=== PATIENT | male | born 1955 | race Asian ===

== ENCOUNTER 2017-07-05 17:15 | Observation (INO) | payer OTHER ==
[~2017-07-05] VITALS: Ht 167.6 cm; Wt 70.3 kg
[~2017-07-05 17:15] MED LIST: AMLO-145 PO; ATOR80TA75 PO; INSULIN GLARGINE; LOSA50TA6 PO; METF500T4 PO; OMEP20CA16 PO; ferrous sulfate
[2017-07-05] MEDS ORDERED: SOD CHLORIDE 0.9% 500 ML IV STA (18:56)
[2017-07-05 19:41] LABS: ABNORMAL IP MESSAGE 1; HEMATOCRIT 19.2 % (42.0-52.0); MEAN CORPUSCULAR HEMOGLOBIN 36.4 pg (29.0-33.0); MEAN CORPUSCULAR HGB CONC 32.8 g/dl (32.0-37.0); MEAN PLATELET VOLUME 10.1 fl (7.4-10.4); NUCLEATED RED BLOOD CELLS% 1.7 /100WBC (0.0-0.0); PLATELET COUNT 61 10^3/UL (140-415); POSITIVE DIFF @See below; RED BLOOD COUNT 1.73 10^6/ul (4.70-6.10)
[2017-07-05 19:49] LABS: HEMOGLOBIN 6.3 g/dl (14.0-18.0)
[2017-07-05 19:57] LABS: INR 0.96; PROTIME 12.8 Sec (12.2-14.2)
[2017-07-05 19:58] LABS: PARTIAL THROMBOPLASTIN TIME 47.5 Sec (25.0-35.0)
[2017-07-05 20:00] LABS: ALBUMIN 3.4 g/dl (3.3-4.9); ALBUMIN/GLOBULIN RATIO 1.17; BILIRUBIN,INDIRECT 0.1 mg/dl (0-1.1); BILIRUBIN,TOTAL 0.1 mg/dl (0.2-1.3); CALCIUM 8.8 mg/dl (8.4-10.2); CREATININE 1.47 mg/dl (0.61-1.24); POTASSIUM 4.6 mmol/L (3.5-5.1); TOTAL PROTEIN 6.3 g/dl (6.1-8.1)
[2017-07-05 20:10] LABS: TROPONIN-I 0.015 ng/ml (0.00-0.12)
[2017-07-05] MEDS ORDERED: ONDANSETRON 4 MG INJ IV PRN ×2 (20:30→22:00)
[2017-07-05] MEDS ORDERED: ACETAMINOPHEN 325 MG TAB PO PRN ×2 (20:30→22:00)
[2017-07-05] MEDS ORDERED: ATOR40TA68 PO (20:32)
[2017-07-05] MEDS ORDERED: TRAZ50TA18 PO (20:33)
[2017-07-05] MEDS ORDERED: FER325 PO (20:33)
[2017-07-05 20:34] LABS: ANISOCYTOSIS 1+ (0-0); EOSINOPHILS % (M) 2 % (0-7); ERYTHROBLAST% (NRBC) (M) 2 % (0-0); MONOCYTES % (M) 5 % (0-11); PLATELET ESTIMATE DECREASED; POLYCHROMASIA 1+ (0-0)
[2017-07-05] MEDS ORDERED: TAMS0.4C2 PO (20:34)
[2017-07-05] MEDS ORDERED: OMEP20CA16 PO (20:34)
[2017-07-05] MEDS ORDERED: GABA300C16 PO (20:37)
[2017-07-05] MEDS ORDERED: MEG40/1 PO (20:37)
[2017-07-05] MEDS ORDERED: FURO20TA3 PO (20:38)
[2017-07-05] MEDS ORDERED: LEVO175T6 PO (20:39)
[2017-07-05] MEDS ORDERED: LABE100T3 PO (20:39)
[2017-07-05] MEDS ORDERED: DOCU-159 PO (20:40)
[2017-07-05] MEDS ORDERED: HYDR2TAB36 PO (20:40)
[2017-07-05 20:43] VITALS: PULSE 88; TEMP 98.1
[2017-07-05] MEDS ORDERED: LANT3I SC (20:43)
[2017-07-05] MEDS ORDERED: INSU100C SQ (20:44)
[2017-07-05] MEDS ORDERED: CLOT15CR6 TOP (20:46)
[2017-07-05 21:30] VITALS: BP 163/80; RESP 19
--- NOTE | 2017-07-05 21:36 | ERA ---
ER Documentation Chief Complaint Date/Time DATE: 07/05/17 TIME: 21:31 Chief Complaint sent by pcp for blood transfusion HPI This 62-year-old male presents for increasing generalized weakness and tiredness. He was seen by his primary care doctor today who believes he would need a blood transfusion. He states that he gets low hemoglobin secondary to chemotherapy. He denies any GI bleeding. Currently does not have any pain but states that he is hungry ROS All systems reviewed and are negative except as per history of present illness. Medications Home Meds Reported Medications Clotrimazole-Betamethasone Diprop (Clotrimazole-Betamethasone Diprop) 15 Gm Cream.gm., 1 APPLIC TOP BID, TUB 07/05/17 Insulin Lispro (Humalog) 100 Unit/1 Ml Cartridge, 3 UNIT SQ BEFORE MEALS 07/05/17 Insulin Glargine* (Lantus*) 100 Unit/Ml Soln, 25 UNIT SC QHS, #1 VIAL OR 30 UNITS. DEPENDS WHAT HE EATING 07/05/17 Docusate Sodium* (Docusate Sodium*) 100 Mg Capsule, 100 MG PO BID, #60 CAP 07/05/17 Hydromorphone Hcl* (Dilaudid*) 2 Mg Tablet, 2 MG PO Q4H Y for PAIN, TAB 07/05/17 Labetalol Hcl* (Labetalol Hcl*) 100 Mg Tablet, 100 MG PO BID, TAB 07/05/17 Levothyroxine Sodium* (Levothyroxine Sodium*) 175 Mcg Tablet, 175 MCG PO BEFORE BREAKFAST, #30 TAB 07/05/17 Furosemide* (Furosemide*) 20 Mg Tablet, 20 MG PO DAILY, #60 TAB 07/05/17 Megestrol Acetate* (Megestrol Acetate*) 400 Mg/10 Ml Susp, 400 MG PO BID, ML 07/05/17 Gabapentin* (Gabapentin*) 300 Mg Capsule, 300 MG PO DAILY, #60 CAP 07/05/17 Tamsulosin Hcl* (Tamsulosin Hcl*) 0.4 Mg Cap.er.24h, 0.4 MG PO DAILY, CAP 07/05/17 Omeprazole* (Omeprazole*) 20 Mg Capsule.dr, 20 MG PO DAILY, #30 CAP 07/05/17 Trazodone Hcl* (Desyrel*) 50 Mg Tablet, 50 MG PO QHS, #30 TAB 07/05/17 Ferrous Sulfate* (Ferrous Sulfate*) 325 Mg Tabec, 325 MG PO DAILY, TAB 07/05/17 Atorvastatin* (Atorvastatin*) 40 Mg Tablet, 40 MG PO QHS, #30 TAB 07/05/17 Metformin* (Glucophage*) 500 Mg Tab, 500 MG PO BID, TAB 11/01/14 Discontinued Reported Medications Omeprazole* (Omeprazole*) 20 Mg Capsule.dr, 20 MG PO DAILY, CAP 11/01/14 [ferrous sulfate] No Conflict Check 11/01/14 Losartan Potassium* (Losartan Potassium*) 50 Mg Tablet, 50 MG PO DAILY, TAB 11/01/14 Amlodipine Besylate* (Amlodipine Besylate*) 5 Mg Tablet, 5 MG PO DAILY, TAB 11/01/14 [lantus 50 u hs] No Conflict Check 11/01/14 Atorvastatin* (Atorvastatin*) 80 Mg Tablet, 80 MG PO HS, TAB 11/01/14 Allergies Allergies: Coded Allergies: No Known Allergy (Unverified , 07/05/17) PMhx/Soc History of Surgery: No Anesthesia Reaction: No Hx Neurological Disorder: No Hx Respiratory Disorders: No Hx Cardiac Disorders: No Hx Psychiatric Problems: No Hx Alcohol Use: No Hx Substance Use: No Hx Tobacco Use: No Smoking Status: Former smoker Physical Exam Vitals Vital Signs Date Time Temp Pulse Resp B/P Pulse Ox O2 Delivery O2 Flow Rate FiO2 07/05/17 19:29 98.1 89 17 185/85 100 Room Air 07/05/17 17:20 98.2 92 20 129/60 99 Physical Exam Const: [] Mild distress Head: Atraumatic Eyes: Pale conjunctiva, EOMI, PRL ENT: Normal External Ears, Nose and Mouth. Neck: Full range of motion..~ No meningismus. Resp: Clear to auscultation bilaterally Cardio: Regular rate and rhythm, no murmurs Abd: Soft, non tender, non distended. Normal bowel sounds Skin: No petechiae or rashes Ext: No cyanosis, or edema Neur: Awake and alert and oriented 3, no focal deficit Psych: Normal Mood and Affect Result Diagram: 07/05/17192407/05/171924 Results 24 hrs Laboratory Tests Test 07/05/17 19:25 White Blood Count 16.210^3/ul Red Blood Count 1.7310^6/ul Hemoglobin 6.3g/dl Hematocrit 19.2% Mean Corpuscular Volume 111.0fl Mean Corpuscular Hemoglobin 36.4pg Mean Corpuscular Hemoglobin Concent 32.8g/dl Red Cell Distribution Width 16.0% Platelet Count 6110^3/UL Mean Platelet Volume 10.1fl Neutrophils % % Segmented Neutrophils % (Manual) 72% Band Neutrophils % (Manual) 5% Lymphocytes % % Lymphocytes % (Manual) 16% Monocytes % % Monocytes % (Manual) 5% Eosinophils % % Eosinophils % (Manual) 2% Basophils % % Nucleated Red Blood Cells % 2% Neutrophils # 10^3/ul Neutrophils # (Manual) 11.810^3/ul Band Neutrophils # 0.810^3/ul Absolute Lymphocytes (Manual) 2.510^3/ul Lymphocytes # 10^3/ul Monocytes # 10^3/ul Absolute Monocytes (Manual) 0.810^3/ul Eosinophils # 10^3/ul Basophils # 10^3/ul Nucleated Red Blood Cells # 10^3/ul Platelet Estimate DECREASED Polychromasia 1+ Anisocytosis 1+ Macrocytosis 1+ Prothrombin Time 12.8Sec Prothrombin Time Ratio 1.0 INR International Normalized Ratio 0.96 Activated Partial Thromboplast Time 47.5Sec Sodium Level 137mmol/L Potassium Level 4.6mmol/L Chloride Level 101mmol/L Carbon Dioxide Level 20mmol/L Anion Gap 21 Blood Urea Nitrogen 36mg/dl Creatinine 1.47mg/dl Glucose Level 165mg/dl Calcium Level 8.8mg/dl Total Bilirubin 0.1mg/dl Direct Bilirubin 0.00mg/dl Indirect Bilirubin 0.1mg/dl Aspartate Amino Transf (AST/SGOT) 27IU/L Alanine Aminotransferase (ALT/SGPT) 38IU/L Alkaline Phosphatase 171IU/L Troponin I 0.015ng/ml Total Protein 6.3g/dl Albumin 3.4g/dl Globulin 2.90g/dl Albumin/Globulin Ratio 1.17 Current Medications Medications (Trade) Dose Ordered Sig/Waylon Route PRN Reason Start Time Stop Time Status Last Admin Dose Admin Sodium Chloride (NS) 500 ml @ 500 mls/hr Q1H STAT IV 07/05/17 18:56 07/05/17 19:55 DC 07/05/17 19:41 Procedures/MDM Acute symptomatic anemia secondary to bone marrow suppression from chemotherapy. Patient also has some leukocytosis although he has no symptoms and if of infection. I did order a urinalysis as well as a chest x-ray. Patient already urinated was able to provide a sample in the emergency room. Also had a chest x-ray on his radiologist backed up was not performed emergency room. Patient was given 500 L of normal saline and transfusion is to begin. She also has some renal insufficiency. I did speak with Dr. Vieyra about this will be admitting the patient to the medical surgical floor for their evaluation and finishing his transfusion. Chest x-ray interpretation: Chest x-ray is still pending and cannot be read by myself at this time. EKG interpretation: Sinus origin of rhythm without ST elevations or depressions concerning for acute ischemia. 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 Departure Diagnosis: Primary Impression: Symptomatic anemia Additional Impressions: Severe anemia Leukocytosis Renal insufficiency Condition: Serious JEAN MARIEELIDAVÍCTORGUILLAUME OWEN Jul 05, 2017 21:36
[2017-07-05] MEDS ORDERED: INSULIN GLARGINE [LANtus] 3 ML PEN SC SCH (22:00)
[2017-07-05] MEDS ORDERED: BISACODYL (EC) 5 MG TAB PO PRN (22:00)
[2017-07-05] MEDS ORDERED: TAMSULOSIN (SR) 0.4 MG CAP PO SCH (22:00)
[2017-07-05] MEDS ORDERED: HYDROCODONE/APAP (5/325) TAB PO PRN ×2 (22:00)
[2017-07-05] MEDS ORDERED: HYDROmorphONE 2 MG TAB PO PRN (22:00)
[2017-07-05] MEDS ORDERED: morphine 2 MG INJ IV PRN (22:00)
[2017-07-05] MEDS ORDERED: FUROSEMIDE 20 MG INJ IV ONE (22:00)
[2017-07-05] MEDS ORDERED: DOCUSATE SODIUM 100 MG CAP PO PRN (22:00)
[2017-07-05] MEDS ORDERED: NACL 0.9% 3 ML SYG IV SCH (22:00)
[2017-07-05] MEDS: LABETALOL 100 MG TAB PO SCH (22:26)
[2017-07-05] MEDS: MEGESTROL (40 MG/ML) 10ML CUP PO SCH (22:27)
[2017-07-05] MEDS ORDERED: GLUCOSE GEL 15 GRAM TUBE BUCCAL PRN (22:30)
[2017-07-05] MEDS ORDERED: GLUCAGON 1 MG INJ IM PRN (22:30)
[2017-07-05] MEDS ORDERED: GLUCOSE GEL 15 GRAM TUBE PO PRN ×2 (22:30)
[2017-07-05] MEDS ORDERED: DEXTROSE 50% 50 ML SYRINGE IV PRN ×2 (22:30)
[2017-07-05] MEDS: INSULIN ASPART [NOVOLOG] 3 ML PEN SC SCH (22:31)
[2017-07-05 23:07] VITALS: Ht 167.6 cm; Wt 70.3 kg
--- NOTE | 2017-07-05 23:14 | HP ---
Date/Time of Note Date/Time of Note DATE: 07/05/17 TIME: 23:13 Assessment/Plan VTE Prophylaxis VTE Prophylaxis Intervention: SCD's Lines/Catheters IV Catheter Type (from [facility]): port a cath Assessment/Plan Chief Complaint/Hosp Course This is a 62-year-old male being admitted to the [facility] floor for: #1 symptomatic anemia: Likely secondary to patient's active cancer at this time. Hemoglobin was 6.3. 2 units of PRBCs were ordered. 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 He recently had a CAT scan of the chest earlier today however he does not know the results at this time.Dr. sosa is his research center partner. Will consult hematology if indicated, will need to call the research center partner office and discuss outpatient CAT scan results. #3 diabetes mellitus: At the current time will hold patient's home medications especially the metformin given that he had a CAT scan done today. Will put patient on insulin sliding scale. Check A1c level #4 hypertension: We will continue patient's home medications. #5 hypothyroidism: We will continue patient's home levothyroxine dose. Will check a TSH level #6 hyperlipidemia: We will continue patient's home statin. #7 DVT and GI prophylaxis: SCDs, Protonix Further treatment strategy will be implemented as per the clinical course Problems: HPI/ROS Admit Date/Time Admit Date/Time Jul 05, 2017 at 20:10 Hx of Present Illness Chief complaint: Low hemogram This 62-year-old male presents for increasing generalized weakness and tiredness. He was seen by his primary care doctor today who believes he would need a blood transfusion. He states that he gets low hemoglobin secondary to chemotherapy. He denies any GI bleeding. Patient has been undergoing chemotherapy treatment for his nasopharyngeal cancer. He did receive Procrit and Neulasta last week. Currently denies any fevers or any cough or any shortness of breath. Allergies: NKDA Medications: See LUIS EDUARDO CACERES Const: As per HPI Eyes : No pain discharge or redness or change in visual acuity ENT: No pain, sore throat, congestion, congestion, dysphagia or discharge Respiratory: No shortness of breath, cough, sputum, wheezing, or pleuritic pain Cardiovascular: No chest pain, palpitation, PND, or edema GI : no change in appetite, abdominal pain, nausea, vomiting, diarrhea, constipation, or change in the color his stool Genitourinary: No dysuria, hematuria, flank pain , discharge or CVA tenderness Musculoskeletal: No joint pain, back pain, neck pain, restricted range of motion in neck or joints Skin: No rash, bruising or hives Neuro: No headache, dizziness, syncope, seizure, focal weakness Endocrine: No polyuria, polydipsia, temperature intolerance Psych: No hallucination, depression, anxiety or suicidal ideation PMH/Family/Social Past Medical History Nasopharyngeal cancer status post chemotherapy, diabetes mellitus, hypertension , BPH, hypothyroidism, hyperlipidemia, on supplemental O2 Past Surgical History Past Surgical Hx: no surgical history Family History Significant Family History: cancer (Colon cancer, ovarian cancer, diabetes mellitus) Social History Alcohol Use: none Smoking Status: Former smoker Drug Use: none Exam/Review of Systems Vital Signs Vitals Vital Signs Date Time Temp Pulse Resp B/P Pulse Ox O2 Delivery O2 Flow Rate FiO2 07/05/17 20:43 98.1 88 17 147/88 100 Room Air Exam Exam General: Patient is a well-developed male lying in bed in no acute distress HEENT: Mild swelling noted at the lateral neck which is consistent with patient' s lymphadenopathy Neck: Supple with full range of motion. No rigidity or meningismus Lungs: Clear to auscultation bilaterally no crackles rales or wheezing Heart: Normal S1-S2, Regular rhythm and rate. No overt murmurs appreciated Abdomen: Soft , nontender, nondistended , bowel sounds are present. No guarding no rebound tenderness , No masses or organomegaly. No costovertebral temporal angle mass Extremities: Normal to inspection, no edema no cyanosis Neurologic: Normal mental status, speech normal, cranial nerves II through XII are intact, motor and sensory are intact, no focal weakness Additional Comments AMENDMENT: 07/06/2017 12:37:17 AM Lorena Jessica M.D Due to an IT issue, there was a delay in the report reaching the provider. Findings were discussed with michael Dumont by Dr Lorena Jessica on July 05, 2017 at 11:15 PM. PROCEDURE: Portable chest x-ray. CLINICAL INDICATION: 62-year-old male. Elevated white blood cell count.. TECHNIQUE: Portable AP view of the chest. COMPARISON: None. FINDINGS: Indwelling right internal jugular central venous line with tip over right atrium. Mild dependent atelectasis. Lungs are otherwise clear. Cardiomediastinal contours are normal. Negative for pleural effusion or pneumothorax.. No acute bony abnormality. IMPRESSION: Negative for evidence of acute chest process. RPTAT: HCTS Erin Jessica Physician Date Time Electronically viewed and signed by Erin Jessica Physician on 07/06/2017 00: 38 CS/ CC: BHAVIN HI Labs Result Diagram: 07/05/17192407/05/171924 Medications Medications Current Medications Ondansetron HCl (Zofran Inj) 4 mg Q6H PRN IV NAUSEA AND/OR VOMITING; Start 07/05 at 22:00 Acetaminophen (Tylenol Tab) 650 mg Q6H PRN PO PAIN LEVEL 1-3 OR FEVER; Start at 22:00 Acetaminophen/ Hydrocodone Bitart ([place] (5/325)) 1 tab Q6H PRN PO PAIN LEVEL 4 -6; Start 07/05/17 at 22:00 Acetaminophen/ Hydrocodone Bitart ([place] (5/325)) 2 tab Q6H PRN PO PAIN LEVEL 7 -10; Start 07/05/17 at 22:00 Morphine Sulfate (morphine) 2 mg Q4H PRN IV PAIN LEVEL 7-10; Start 07/05/17 at 22:00 Docusate Sodium (Colace) 100 mg Q12H PRN PO CONSTIPATION; Start 07/05/17 at 22: 00 Bisacodyl (Dulcolax) 5 mg DAILY PRN PO CONSTIPATION; Start 07/05/17 at 22:00 Pantoprazole (Protonix Tab) 40 mg DAILY@06 PO ; Start 07/06/17 at 06:00 Atorvastatin Calcium (Lipitor) 40 mg QHS PO ; Start 07/06/17 at 21:00 Betamethasone/ Clotrimazole (Lotrisone Cr) 1 applic BID TOP ; Start 07/06/17 at 09:00 Ferrous Sulfate (Ferrous Sulfate (Ec)) 325 mg DAILY PO ; Start 07/06/17 at 09:00 Gabapentin (Neurontin) 300 mg DAILY PO ; Start 07/06/17 at 09:00 Hydromorphone HCl (Dilaudid) 2 mg Q4H PRN PO PAIN; Start 07/05/17 at 22:00 Insulin Glargine (Lantus) 25 unit QHS SC Last administered on 07/05/17 22:29; Admin Dose 25 UNIT; Start 07/05/17 at 22:00 Labetalol HCl (Normodyne) 100 mg BID PO Last administered on 07/05/17 22:26; Admin Dose 100 MG; Start 07/05/17 at 22:00 Megestrol Acetate (Megace Susp) 400 mg BID PO Last administered on 07/05/17 22: 27; Admin Dose 400 MG; Start 07/05/17 at 22:00 Tamsulosin HCl (Flomax) 0.4 mg DAILY@21 PO Last administered on 07/05/17 22:27 ; Admin Dose 0.4 MG; Start 07/05/17 at 22:00 Trazodone HCl (Desyrel) 50 mg QHS PO ; Start 07/06/17 at 21:00 Diagnostic Test (Pha) (Accu-Chek) 1 ea 02 XX ; Start 07/06/17 at 02:00 Miscellaneous Information 1 ea NOTE XX ; Start 07/05/17 at 22:30 Glucose (Glutose) 15 gm Q15M PRN PO DECREASED GLUCOSE; Start 07/05/17 at 22:30 Glucose (Glutose) 22.5 gm Q15M PRN PO DECREASED GLUCOSE; Start 07/05/17 at 22:30 Dextrose (D50w Syringe) 25 ml Q15M PRN IV DECREASED GLUCOSE; Start 07/05/17 at 22:30 Dextrose (D50w Syringe) 50 ml Q15M PRN IV DECREASED GLUCOSE; Start 07/05/17 at 22:30 Glucagon (Glucagen) 1 mg Q15M PRN IM DECREASED GLUCOSE; Start 07/05/17 at 22:30 Glucose (Glutose) 15 gm Q15M PRN BUCCAL DECREASED GLUCOSE; Start 07/05/17 at 22: 30 BHAVIN HI Jul 05, 2017 23:14
--- NOTE | 2017-07-06 00:17 | RADRPT ---
AMENDMENT: 07/06/2017 12:37:17 AM Lorena Jessica M.D Due to an IT issue, there was a delay in the report reaching the provider. Findings were discussed w geoff Dumont by Dr Lorena Jessica on July 05, 2017 at 11:15 PM. PROCEDURE: Portable chest x-ray. CLINICAL INDICATION: 62-year-old male. Elevated white blood cell count.. TECHNIQUE: Portable AP view of the chest. COMPARISON: None. FINDINGS: Indwelling right internal jugular central venous line with tip over right atrium. Mild dependent atelectasis. Lungs are otherwise clear. Cardiomediastinal contours are normal. Negative for pleural effusion or pneumothorax.. No acute bony abnormality. IMPRESSION: Negative for evidence of acute chest process. RPTAT: HCTS Physician Barby Date Time Electronically viewed and signed by Erin Jessica Physician on 07/06/2017 00:38 ANNIE/
[2017-07-06] MEDS ORDERED: ACCU-CHEK XX SCH ×2 (02:00)
[2017-07-06 02:20] VITALS: BP 149/86; RESP 19
[2017-07-06 03:16] LABS: ADD UMIC YES; UR ASCORBIC ACID NEGATIVE (NEGATIVE); UR BILIRUBIN (Dip) NEGATIVE (NEGATIVE); UR BLOOD (Dip) NEGATIVE (NEGATIVE); UR CLARITY CLEAR (CLEAR); UR COLOR YELLOW (YELLOW); UR GLUCOSE (Dip) 1+ mg/dL (NEGATIVE); UR KETONES (Dip) NEGATIVE (NEGATIVE); UR LEUKOCYTE ESTERASE (Dip) NEGATIVE Leu/ul (NEGATIVE); UR NITRITE (Dip) NEGATIVE (NEGATIVE); UR RBC 1 /HPF (0-5); UR SPECIFIC GRAVITY (Dip) 1.021 (1.003-1.030); UR TOTAL PROTEIN (Dip) 2+ mg/dl (NEGATIVE); UR UROBILINOGEN (Dip) NEGATIVE (NEGATIVE)
[2017-07-06] MEDS ORDERED: PANTOPRAZOLE (EC) 40 MG TAB PO SCH (06:00)
[2017-07-06 06:58] LABS: ABNORMAL IP MESSAGE 1; HEMATOCRIT 27.8 % (42.0-52.0); HEMOGLOBIN 9.4 g/dl (14.0-18.0); MEAN CORPUSCULAR HEMOGLOBIN 33.8 pg (29.0-33.0); MEAN CORPUSCULAR HGB CONC 33.8 g/dl (32.0-37.0); MEAN PLATELET VOLUME 10.1 fl (7.4-10.4); PLATELET COUNT 49 10^3/UL (140-415); POSITIVE DIFF @See below; RED BLOOD COUNT 2.78 10^6/ul (4.70-6.10); RED CELL DISTRIBUTION WIDTH 19.8 % (11.5-14.5); WHITE BLOOD COUNT 14.9 10^3/ul (4.8-10.8)
[2017-07-06] MEDS ORDERED: LEVOTHYROXINE 175 MCG TAB PO SCH (07:00)
[2017-07-06 07:33] LABS: ALBUMIN 3.2 g/dl (3.3-4.9); ALBUMIN/GLOBULIN RATIO 1.06; BILIRUBIN,INDIRECT 0.7 mg/dl (0-1.1); BILIRUBIN,TOTAL 0.7 mg/dl (0.2-1.3); CALCIUM 8.9 mg/dl (8.4-10.2); CREATININE 1.17 mg/dl (0.61-1.24); POTASSIUM 3.8 mmol/L (3.5-5.1); TOTAL PROTEIN 6.2 g/dl (6.1-8.1)
[2017-07-06 08:00] VITALS: BP 149/78; RESP 18
[2017-07-06] MEDS: INSULIN ASPART [NOVOLOG] 3 ML PEN SC SCH ×4 (08:00→13:54)
[2017-07-06] MEDS ORDERED: GABAPENTIN 300 MG CAP PO SCH (09:00)
[2017-07-06] MEDS ORDERED: BETAMETHASONE/CLOTRIMAZOLE 15 GM CR TOP SCH (09:00)
[2017-07-06] MEDS ORDERED: FERROUS SULFATE (EC) 325 MG TAB PO SCH (09:00)
[2017-07-06 09:26] LABS: ANISOCYTOSIS 1+ (0-0); ERYTHROBLAST% (NRBC) (M) 2 % (0-0); MICROCYTOSIS 1+ (0-0); MONOCYTES % (M) 4 % (0-11); PLATELET ESTIMATE SIG DECREASED; POLYCHROMASIA 3+ (0-0)
[2017-07-06] MEDS: MEGESTROL (40 MG/ML) 10ML CUP PO SCH (09:29)
[2017-07-06] MEDS: LABETALOL 100 MG TAB PO SCH (09:30)
[2017-07-06 14:00] VITALS: BP 128/68; RESP 20
--- NOTE | 2017-07-06 14:18 | PDOCDIS ---
Discharge Instructions CONDITION Patient Condition: Good FOLLOW UP/APPOINTMENTS Follow-up Plan Continue taking your medications as prescribed Follow up with your oncologist and primary care physician VADIM FAN MD Jul 06, 2017 14:18
--- NOTE | 2017-07-06 14:22 | DS ---
Date/Time of Note Date/Time of Note DATE: 07/06/17 TIME: 14:22 Discharge Summary Admission/Discharge Info Admit Date/Time Jul 05, 2017 at 20:10 Discharge Date/Time Procedures Patient had 2 units of PRBCs transfused with appropriate response He was discharged to further care as an outpatient from his oncologist Hx of Present Illness Chief complaint: Low hemogram This 62-year-old male presents for increasing generalized weakness and tiredness. He was seen by his primary care doctor today who believes he would need a blood transfusion. He states that he gets low hemoglobin secondary to chemotherapy. He denies any GI bleeding. Patient has been undergoing chemotherapy treatment for his nasopharyngeal cancer. He did receive Procrit and Neulasta last week. Currently denies any fevers or any cough or any shortness of breath. Allergies: NKDA Medications: See MAR Hospital Course This is a 62-year-old male being admitted to the [facility] floor for: #1 symptomatic anemia: Likely secondary to patient's active cancer at this time. Hemoglobin was 6.3. 2 units of PRBCs were ordered. 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 He recently had a CAT scan of the chest earlier today however he does not know the results at this time.Dr. sosa is his body maker machine setter. Will consult hematology if indicated, will need to call the body maker machine setter office and discuss outpatient CAT scan results. #3 diabetes mellitus: At the current time will hold patient's home medications especially the metformin given that he had a CAT scan done today. Will put patient on insulin sliding scale. Check A1c level #4 hypertension: We will continue patient's home medications. #5 hypothyroidism: We will continue patient's home levothyroxine dose. Will check a TSH level #6 hyperlipidemia: We will continue patient's home statin. #7 DVT and GI prophylaxis: SCDs, Protonix Further treatment strategy will be implemented as per the clinical course Home Meds Reported Medications Clotrimazole-Betamethasone Diprop (Clotrimazole-Betamethasone Diprop) 15 Gm Cream.gm., 1 APPLIC TOP BID, TUB 07/05/17 Insulin Lispro (Humalog) 100 Unit/1 Ml Cartridge, 3 UNIT SQ BEFORE MEALS 07/05/17 Insulin Glargine* (Lantus*) 100 Unit/Ml Soln, 25 UNIT SC QHS, #1 VIAL OR 30 UNITS. DEPENDS WHAT HE EATING 07/05/17 Docusate Sodium* (Docusate Sodium*) 100 Mg Capsule, 100 MG PO BID, #60 CAP 07/05/17 Hydromorphone Hcl* (Dilaudid*) 2 Mg Tablet, 2 MG PO Q4H Y for PAIN, TAB 07/05/17 Labetalol Hcl* (Labetalol Hcl*) 100 Mg Tablet, 100 MG PO BID, TAB 07/05/17 Levothyroxine Sodium* (Levothyroxine Sodium*) 175 Mcg Tablet, 175 MCG PO BEFORE BREAKFAST, #30 TAB 07/05/17 Furosemide* (Furosemide*) 20 Mg Tablet, 20 MG PO DAILY, #60 TAB 07/05/17 Megestrol Acetate* (Megestrol Acetate*) 400 Mg/10 Ml Susp, 400 MG PO BID, ML 07/05/17 Gabapentin* (Gabapentin*) 300 Mg Capsule, 300 MG PO DAILY, #60 CAP 07/05/17 Tamsulosin Hcl* (Tamsulosin Hcl*) 0.4 Mg Cap.er.24h, 0.4 MG PO DAILY, CAP 07/05/17 Omeprazole* (Omeprazole*) 20 Mg Capsule.dr, 20 MG PO DAILY, #30 CAP 07/05/17 Trazodone Hcl* (Desyrel*) 50 Mg Tablet, 50 MG PO QHS, #30 TAB 07/05/17 Ferrous Sulfate* (Ferrous Sulfate*) 325 Mg Tabec, 325 MG PO DAILY, TAB 07/05/17 Atorvastatin* (Atorvastatin*) 40 Mg Tablet, 40 MG PO QHS, #30 TAB 07/05/17 Metformin* (Glucophage*) 500 Mg Tab, 500 MG PO BID, TAB 11/01/14 Discontinued Reported Medications Omeprazole* (Omeprazole*) 20 Mg Capsule.dr, 20 MG PO DAILY, CAP 11/01/14 [ferrous sulfate] No Conflict Check 11/01/14 Losartan Potassium* (Losartan Potassium*) 50 Mg Tablet, 50 MG PO DAILY, TAB 11/01/14 Amlodipine Besylate* (Amlodipine Besylate*) 5 Mg Tablet, 5 MG PO DAILY, TAB 11/01/14 [lantus 50 u hs] No Conflict Check 11/01/14 Atorvastatin* (Atorvastatin*) 80 Mg Tablet, 80 MG PO HS, TAB 11/01/14 Primary Care Provider Julia Sosa M.D. Pending Labs Laboratory Tests Test 07/05/17 19:25 07/05/17 21:46 07/06/17 01:45 07/06/17 02:06 White Blood Count 16.210^3/ul (4.8-10.8) Red Blood Count 1.7310^6/ul (4.70-6.10) Hemoglobin 6.3g/dl (14.0-18.0) Hematocrit 19.2% (42.0-52.0) Mean Corpuscular Volume 111.0fl (82.0-101.0) Mean Corpuscular Hemoglobin 36.4pg (29.0-33.0) Mean Corpuscular Hemoglobin Concent 32.8g/dl (32.0-37.0) Red Cell Distribution Width 16.0% (11.5-14.5) Platelet Count 6110^3/UL (140-415) Mean Platelet Volume 10.1fl (7.4-10.4) Neutrophils % % (39.0-77.0) Segmented Neutrophils % (Manual) 72% (39-77) Band Neutrophils % (Manual) 5% (0-4) Lymphocytes % % (15.0-51.0) Lymphocytes % (Manual) 16% (15-51) Monocytes % % (0.0-11.0) Monocytes % (Manual) 5% (0-11) Eosinophils % % (0.0-7.0) Eosinophils % (Manual) 2% (0-7) Basophils % % (0.0-2.0) Nucleated Red Blood Cells % 2% (0-0) Neutrophils # 10^3/ul (1.6-7.5) Neutrophils # (Manual) 11.810^3/ul (1.7-7.5) Band Neutrophils # 0.810^3/ul (0.0-0.6) Absolute Lymphocytes (Manual) 2.510^3/ul (0.8-2.9) Lymphocytes # 10^3/ul (0.8-2.9) Monocytes # 10^3/ul (0.3-0.9) Absolute Monocytes (Manual) 0.810^3/ul (0.3-0.9) Eosinophils # 10^3/ul (0.0-0.5) Basophils # 10^3/ul (0.0-0.1) Nucleated Red Blood Cells # 10^3/ul (0.0-0.0) Platelet Estimate DECREASED Polychromasia 1+ (0-0) Anisocytosis 1+ (0-0) Macrocytosis 1+ (0-0) Prothrombin Time 12.8Sec (12.2-14.2) Prothrombin Time Ratio 1.0 INR International Normalized Ratio 0.96 Activated Partial Thromboplast Time 47.5Sec (25.0-35.0) Sodium Level 137mmol/L (135-144) Potassium Level 4.6mmol/L (3.5-5.1) Chloride Level 101mmol/L (97-110) Carbon Dioxide Level 20mmol/L (21-31) Anion Gap 21 (8-16) Blood Urea Nitrogen 36mg/dl (7-20) Creatinine 1.47mg/dl (0.61-1.24) Glucose Level 165mg/dl (70-220) Calcium Level 8.8mg/dl (8.4-10.2) Total Bilirubin 0.1mg/dl (0.2-1.3) Direct Bilirubin 0.00mg/dl (0.00-0.20) Indirect Bilirubin 0.1mg/dl (0-1.1) Aspartate Amino Transf (AST/SGOT) 27IU/L (15-46) Alanine Aminotransferase (ALT/SGPT) 38IU/L (13-69) Alkaline Phosphatase 171IU/L (42-121) Troponin I 0.015ng/ml (0.00-0.12) Total Protein 6.3g/dl (6.1-8.1) Albumin 3.4g/dl (3.3-4.9) Globulin 2.90g/dl (1.3-3.2) Albumin/Globulin Ratio 1.17 Bedside Glucose 188mg/dL (70-220) 132mg/dL (70-220) Urine Color YELLOW (YELLOW) Urine Clarity CLEAR (CLEAR) Urine pH 5.0 (5.0-9.0) Urine Specific [place] 1.021 (1.003-1.030) Urine Ketones NEGATIVEmg/dL (NEGATIVE) Urine Nitrite NEGATIVEmg/dL (NEGATIVE) Urine Bilirubin NEGATIVEmg/dL (NEGATIVE) Urine Urobilinogen NEGATIVEmg/dL (NEGATIVE) Urine Leukocyte Esterase NEGATIVELeu/ul (NEGATIVE) Urine Microscopic RBC 1/HPF (0-5) Urine Microscopic WBC 0/HPF (0-5) Urine Hemoglobin NEGATIVEmg/dL (NEGATIVE) Urine Glucose 1+mg/dL (NEGATIVE) Urine Total Protein 2+mg/dl (NEGATIVE) Test 07/06/17 06:14 07/06/17 06:22 07/06/17 07:41 07/06/17 12:42 Lab Scanned Report BLOOD [id number] White Blood Count 14.910^3/ul (4.8-10.8) Red Blood Count 2.7810^6/ul (4.70-6.10) Hemoglobin 9.4g/dl (14.0-18.0) Hematocrit 27.8% (42.0-52.0) Mean Corpuscular Volume 100.0fl (82.0-101.0) Mean Corpuscular Hemoglobin 33.8pg (29.0-33.0) Mean Corpuscular Hemoglobin Concent 33.8g/dl (32.0-37.0) Red Cell Distribution Width 19.8% (11.5-14.5) Platelet Count 4910^3/UL (140-415) Mean Platelet Volume 10.1fl (7.4-10.4) Neutrophils % % (39.0-77.0) Segmented Neutrophils % (Manual) 66% (39-77) Band Neutrophils % (Manual) 16% (0-4) Lymphocytes % % (15.0-51.0) Lymphocytes % (Manual) 14% (15-51) Monocytes % % (0.0-11.0) Monocytes % (Manual) 4% (0-11) Eosinophils % % (0.0-7.0) Basophils % % (0.0-2.0) Nucleated Red Blood Cells % 2% (0-0) Neutrophils # 10^3/ul (1.6-7.5) Neutrophils # (Manual) 10.210^3/ul (1.7-7.5) Band Neutrophils # 2.310^3/ul (0.0-0.6) Absolute Lymphocytes (Manual) 2.010^3/ul (0.8-2.9) Lymphocytes # 10^3/ul (0.8-2.9) Monocytes # 10^3/ul (0.3-0.9) Absolute Monocytes (Manual) 0.510^3/ul (0.3-0.9) Eosinophils # 10^3/ul (0.0-0.5) Basophils # 10^3/ul (0.0-0.1) Nucleated Red Blood Cells # 10^3/ul (0.0-0.0) Smudge Cells % 1% (0-0) Platelet Estimate SIG DECREASED Polychromasia 3+ (0-0) Anisocytosis 1+ (0-0) Microcytosis 1+ (0-0) Sodium Level 141mmol/L (135-144) Potassium Level 3.8mmol/L (3.5-5.1) Chloride Level 102mmol/L (97-110) Carbon Dioxide Level 24mmol/L (21-31) Anion Gap 19 (8-16) Blood Urea Nitrogen 33mg/dl (7-20) Creatinine 1.17mg/dl (0.61-1.24) Glucose Level 107mg/dl (70-220) Calcium Level 8.9mg/dl (8.4-10.2) Total Bilirubin 0.7mg/dl (0.2-1.3) Direct Bilirubin 0.00mg/dl (0.00-0.20) Indirect Bilirubin 0.7mg/dl (0-1.1) Aspartate Amino Transf (AST/SGOT) 29IU/L (15-46) Alanine Aminotransferase (ALT/SGPT) 30IU/L (13-69) Alkaline Phosphatase 140IU/L (42-121) Total Protein 6.2g/dl (6.1-8.1) Albumin 3.2g/dl (3.3-4.9) Globulin 3.00g/dl (1.3-3.2) Albumin/Globulin Ratio 1.06 Bedside Glucose 136mg/dL (70-220) 116mg/dL (70-220) VADIM FAN MD Jul 06, 2017 14:22
[2017-07-06 17:34] LABS: WHITE BLOOD COUNT 16.2 10^3/ul (4.8-10.8)
[2017-07-06] MEDS ORDERED: ATORVASTATIN 40 MG TAB PO SCH (21:00)
[2017-07-06] MEDS ORDERED: traZODone 50 MG TAB PO SCH (21:00)
== END 2017-07-06 15:40 | disposition home or self-care (01) ==
LOC: E/R 17:15 → PP2 20:10
PROVIDERS: ADMIT Family Medicine; ATTEND Family Medicine
DX: D64.9 Anemia, unspecified (principal); C11.9 Malignant neoplasm of nasopharynx, unspecified; Z79.899 Other long term (current) drug therapy; E11.9 Type 2 diabetes mellitus without complications; I10 Essential (primary) hypertension; E03.9 Hypothyroidism, unspecified; E78.5 Hyperlipidemia, unspecified
CPT/HCPCS: 36415; 36430; 71010; 80053; 81001; 82962; 84484; 85025; 85610; 85730; 86644; 86850; 86900; 86901; 86920; 93005; 96372; 96374; J1815; J1940; J7040; P9016; Z7500; Z7502; Z7610; 99217; G0378

== ENCOUNTER 2017-07-25 14:41 | Outpatient (CLI) | payer OTHER ==
[~2017-07-25] VITALS: Ht 167.6 cm; Wt 71.4 kg
[2017-07-25 14:40] VITALS: BP 134/61; PULSE 82; RESP 18; Ht 167.6 cm; Wt 71.4 kg
[~2017-07-25 14:41] MED LIST changes: -AMLO-145 PO; +ATOR40TA68 PO; -ATOR80TA75 PO; +CLOT15CR6 TOP; +DOCU-159 PO; +FER325 PO; +FURO20TA3 PO; +GABA300C16 PO; +HYDR2TAB36 PO; +INSU100C SQ; -INSULIN GLARGINE; +LABE100T3 PO; +LANT3I SC; +LEVO175T6 PO; -LOSA50TA6 PO; +MEG40/1 PO; +TAMS0.4C2 PO; +TRAZ50TA18 PO; -ferrous sulfate
--- NOTE | 2017-07-25 15:34 | PN ---
Date/Time of Note Date/Time of Note DATE: 07/25/17 TIME: 15:27 Outpatient Progress Note Chief Complaint Ankle edema/anemia/diabetes/hypertension/hypothyroidism/hyperlipidemia/ nasopharyngeal cancer HPI Ankle edema/patient has bilateral ankle edema, patient has been drinking more fluid, patient has slight shortness of breath especially at night, no orthopnea , wheezing, Patient ankle edema new per patient, it was not present while patient was in the hospital, Anemia/no hematemesis or melena, patient had been followed by hematology oncology, Diabetes/no polydipsia polyuria hypoglycemia, Hypertension/no headache or dizziness or lightheadedness, Hyperlipidemia/no xanthoma, on medication, 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 loss, no Fatigue, normal appetite, no diaphoresis. Eyes: No pain, no discharge, no redness, no visual change, no foreign body. ENT: No pain, no bleeding, no congestion, no sore throat, no dysphagia, no discharge or rhinitis. Lymph: No adenopathy, no tender nodes, no lymphedema. Resp: No SOB, no cough, no sputum, no wheezing, no chest pain. CV: No chest pain, slight shortness of breath at night, and on exertion, no palpitaions, no RENTERIA, no PND, bilateral ankle edema. GI: Normal appetite, no pain, no nausea, no vomiting, no diarrhea, no blood, no constipation. : No frequency, no urgency, no dysuria, no hematuria, no flank pain, no discharge, no bleeding. Musc: No back pain, no neck pain, no knee pain, no restricted ROM. Skin: No rash, no skin lesions, no erythema, no laceration, no bruising, no pruritus. Neuro: No NICOLE, no dizziness, no syncope, no seizure, no focal-weakness. Endo: No polyuria, no polydypsia, no dry-skin, no temp-intolerance. Psych: No hallucinations, no depression, no anxiety, no suicidal ideation. Ext: Bilateral ankle edema, no pain, no ulcer, no weakness. Physical Exam Vital Signs Date Time Temp Pulse Resp B/P Pulse Ox O2 Delivery O2 Flow Rate FiO2 07/25/17 14:40 97.9 82 18 134/61 99 Room Air General Appearance: A 62 year-old male who appears well-developed, well- nourished, in no acute distress. HEENT: Head normocephalic, atraumatic. Pupils equal, round, reactive to light and accommodate. Sclerae are no jaundice. Nasal turbinates pink without erythema or nasal discharge. Mucous membranes pink and moist without lesions. Oropharynx clear without any exudate or discharge. NECK: Supple. Trachea midline, No thyromegaly, No cervical lymphadenopathy, No mass, No carotid bruits, No JVD, Carotid pulses 2+ bilaterally. PULMONARY: Clear to auscultaion bilaterally, No retractions, Chest expansion symmetric bilaterally, no rales, no ronchi, no dulness on percussion. CARDIAC: Normal SI and S2, Regular rate and rythm, no murmur, gallop, or rub. GASTROINTESTINAL: Abdomen is soft, non-tender, Non Rigid, No distention, Positive bowel sounds x4 quadrants, Liver normal. SKIN: Warm, dry, no rash, no bruise, no echmosis. EXTREMITIES: Bilateral lower extremities 2+ edema, no phlabitus, pulse palpable , no contracture. MUSCULOSKELETAL: Spine Normal, Non-tender, Normal range of motion, No swelling, no deformity, no clubbing, or cyanosis, the patient has no edema to bilateral lower extremities, dorsalis pedis pulses palpable bilaterally. NEUROLOGIC: The patient is awake, alert, oriented, responding to yes/no questions appropriately, moving all extremities, cranial nerve intact, normal strenght, normal power, normal coordination, normal gait. Allergies Coded Allergies: No Known Allergy (Unverified , 07/05/17) PMH Diabetes/anemia/hypertension/hypothyroidism/hyperlipidemia/nasopharyngeal cancer Social Hx No smoking no drinking, Family Hx Noncontributory Patient History: Endocrine and metabolic disease G8 SIBLING (DM) G8 SIBLING (DM) G8 SIBLING (DM) G8 SIBLING (DM) G8 SIBLING (DM) G8 SIBLING (DM) Assessment/Plan Impression Ankle edema/anemia/diabetes/hypertension/hypothyroidism/hyperlipidemia/ nasopharyngeal cancer Plan Patient education done about diabetes and hypertension, patient also has renal failure, patient began significantly elevated, Patient has shortness of breath on exertion and difficulty lying down, may have early congestive heart failure, We will get a chest x-ray to rule out CHF, We will also increase Lasix to 40 mg daily, for 1 week I will see the patient in 1 week, will get a BUN and creatinine in 1 week, discussed with the patient and the family that patient's BUN and creatinine will go up because of Lasix, Patient encouraged to reduce fluid intake, If patient or the family feel uncomfortable or any shortness of breath increases or not feeling well patient to go to the ER, or primary care physicians, patient very high risk for repeated admission, and also sudden cardiac arrest, 9 patient has oxygen at home, patient encouraged to take oxygen, Medications Home Meds Reported Medications Clotrimazole-Betamethasone Diprop (Clotrimazole-Betamethasone Diprop) 15 Gm Cream.gm., 1 APPLIC TOP BID, TUB 07/05/17 Insulin Lispro (Humalog) 100 Unit/1 Ml Cartridge, 3 UNIT SQ BEFORE MEALS 07/05/17 Insulin Glargine* (Lantus*) 100 Unit/Ml Soln, 25 UNIT SC QHS, #1 VIAL OR 30 UNITS. DEPENDS WHAT HE EATING 07/05/17 Docusate Sodium* (Docusate Sodium*) 100 Mg Capsule, 100 MG PO BID, #60 CAP 07/05/17 Hydromorphone Hcl* (Dilaudid*) 2 Mg Tablet, 2 MG PO Q4H Y for PAIN, TAB 07/05/17 Labetalol Hcl* (Labetalol Hcl*) 100 Mg Tablet, 100 MG PO BID, TAB 07/05/17 Levothyroxine Sodium* (Levothyroxine Sodium*) 175 Mcg Tablet, 175 MCG PO BEFORE BREAKFAST, #30 TAB 07/05/17 Furosemide* (Furosemide*) 20 Mg Tablet, 20 MG PO DAILY, #60 TAB 07/05/17 Megestrol Acetate* (Megestrol Acetate*) 400 Mg/10 Ml Susp, 400 MG PO BID, ML 07/05/17 Gabapentin* (Gabapentin*) 300 Mg Capsule, 300 MG PO DAILY, #60 CAP 07/05/17 Tamsulosin Hcl* (Tamsulosin Hcl*) 0.4 Mg Cap.er.24h, 0.4 MG PO DAILY, CAP 07/05/17 Omeprazole* (Omeprazole*) 20 Mg Capsule.dr, 20 MG PO DAILY, #30 CAP 07/05/17 Trazodone Hcl* (Desyrel*) 50 Mg Tablet, 50 MG PO QHS, #30 TAB 07/05/17 Ferrous Sulfate* (Ferrous Sulfate*) 325 Mg Tabec, 325 MG PO DAILY, TAB 07/05/17 Atorvastatin* (Atorvastatin*) 40 Mg Tablet, 40 MG PO QHS, #30 TAB 07/05/17 Metformin* (Glucophage*) 500 Mg Tab, 500 MG PO BID, TAB 11/01/14 MARIE RIVAS MD Jul 25, 2017 15:34
== END 2017-07-25 17:00 | disposition home or self-care (01) ==
LOC: DCC 14:41
PROVIDERS: ATTEND Internal Medicine
DX: E11.9 Type 2 diabetes mellitus without complications (principal); D64.9 Anemia, unspecified; I10 Essential (primary) hypertension; E03.9 Hypothyroidism, unspecified; E78.5 Hyperlipidemia, unspecified; C11.9 Malignant neoplasm of nasopharynx, unspecified

== ENCOUNTER 2017-08-02 13:46 | Outpatient (CLI) | payer OTHER ==
[~2017-08-02] VITALS: Ht 167.6 cm; Wt 72.3 kg
[2017-08-02 14:05] VITALS: BP 154/72; PULSE 101; RESP 18; Ht 167.6 cm; Wt 72.3 kg
--- NOTE | 2017-08-02 15:12 | PN ---
Date/Time of Note Date/Time of Note DATE: 08/02/17 TIME: 15:08 Outpatient Progress Note Chief Complaint Edema/diabetes/hypertension/hypothyroidism/anemia/hyperlipidemia/nasopharyngeal cancer HPI Ankle edema/patient has bilateral ankle edema, slightly reduced patient on Lasix 40 mg daily, no dizziness, no lightheadedness, Diabetes/no polydipsia poly-hypoglycemia, Hypertension/no headache or dizziness, no impaired vision, Hypothyroidism/patient has no puffiness of eyes, no constipation, on medication, Anemia/no hematemesis or melena, ecchymoses or bruises, Hyperlipidemia/no xanthoma, on medication, Nasopharyngeal cancer/no weight loss, no bleeding, Review of Systems Const: No Fever, no chills, no Wt. loss, no Fatigue, slightly reduced appetite, no diaphoresis. Eyes: No pain, no discharge, no redness, no visual change, no foreign body., No jaundice, ENT: No pain, no bleeding, no congestion, no sore throat, no dysphagia, no discharge or rhinitis. Lymph: No adenopathy, no tender nodes, no mass, Resp: No SOB, no cough, no sputum, no wheezing, no chest pain. No reduced air entry, CV: No chest pain, no palpitaions, no RENTERIA, no PND, bilateral ankle edema. GI: Normal appetite, no pain, no nausea, no vomiting, no diarrhea, no blood, no constipation. : No frequency, no urgency, no dysuria, no hematuria, no flank pain, no discharge, no bleeding. Musc: No bone/joint pain, no back pain, no neck pain, no knee pain, no restricted ROM. Skin: No rash, no skin lesions, no erythema, no laceration, no bruising, no pruritus. Neuro: No NICOLE, no dizziness, no syncope, no seizure, no focal-weakness. Endo: No polyuria, no polydypsia, no dry-skin, no temp-intolerance. Psych: No hallucinations, no depression, no anxiety, no suicidal ideation. Ext: Bilateral ankle edema, no pain, no ulcer, no weakness. Physical Exam Vital Signs Date Time Temp Pulse Resp B/P Pulse Ox O2 Delivery O2 Flow Rate FiO2 08/02/17 14:05 98.0 101 18 154/72 96 Room Air General Appearance: A 62 year-old male who appears well-developed, well- nourished, in no acute distress. HEENT: Head normocephalic, atraumatic. Pupils equal, round, reactive to light and accommodate. Sclerae are no jaundice. Nasal turbinates pink without erythema or nasal discharge. Mucous membranes pink and moist without lesions. Oropharynx clear without any exudate or discharge. NECK: Supple. Trachea midline, No thyromegaly, No cervical lymphadenopathy, No mass, No carotid bruits, No JVD, Carotid pulses 2+ bilaterally. PULMONARY: Clear to auscultaion bilaterally, No retractions, Chest expansion symmetric bilaterally, no rales, no ronchi, no dulness on percussion. CARDIAC: Normal SI and S2, Regular rate and rythm, no murmur, gallop, or rub. GASTROINTESTINAL: Abdomen is soft, non-tender, Non Rigid, No distention, Positive bowel sounds x4 quadrants, Liver normal. SKIN: Warm, dry, no rash, no bruise, no echmosis. EXTREMITIES: Bilateral lower extremitiesedema, no phlabitus, pulse palpable, no contracture. MUSCULOSKELETAL: Spine Normal, Non-tender, Normal range of motion, No swelling, no deformity, no clubbing, or cyanosis, the patient has no edema to bilateral lower extremities, NEUROLOGIC: The patient is awake, alert, oriented, responding to yes/no questions appropriately, moving all extremities, cranial nerve intact, normal strenght, normal power, normal coordination, normal gait. Allergies Coded Allergies: No Known Allergy (Unverified , 07/05/17) PMH No change Social Hx No change Family Hx No change Patient History: Endocrine and metabolic disease G8 SIBLING (DM) G8 SIBLING (DM) G8 SIBLING (DM) G8 SIBLING (DM) G8 SIBLING (DM) G8 SIBLING (DM) Assessment/Plan Impression Bilateral ankle edema/diabetes/hypertension/hypothyroidism/anemia/hyperlipidemia /nasopharyngeal cancer Plan Patient has bilateral ankle edema, patient has been instructed to reduce fluid intake significantly, patient still has a weight gain and bilateral ankle edema , patient will be maintained on Lasix 40 mg daily another week, patient also advised to reduce fluid intake further, Patient advised to increase activity, Patient also advised to follow with the primary care physician, Patient chest x-ray CBC CMP noted, potassium level is 5.2 still upper limit of normal, will monitor closely, Medications Home Meds Reported Medications Clotrimazole-Betamethasone Diprop (Clotrimazole-Betamethasone Diprop) 15 Gm Cream.gm., 1 APPLIC TOP BID, TUB 07/05/17 Insulin Lispro (Humalog) 100 Unit/1 Ml Cartridge, 3 UNIT SQ BEFORE MEALS 07/05/17 Insulin Glargine* (Lantus*) 100 Unit/Ml Soln, 25 UNIT SC QHS, #1 VIAL OR 30 UNITS. DEPENDS WHAT HE EATING 07/05/17 Docusate Sodium* (Docusate Sodium*) 100 Mg Capsule, 100 MG PO BID, #60 CAP 07/05/17 Hydromorphone Hcl* (Dilaudid*) 2 Mg Tablet, 2 MG PO Q4H Y for PAIN, TAB 07/05/17 Labetalol Hcl* (Labetalol Hcl*) 100 Mg Tablet, 100 MG PO BID, TAB 07/05/17 Levothyroxine Sodium* (Levothyroxine Sodium*) 175 Mcg Tablet, 175 MCG PO BEFORE BREAKFAST, #30 TAB 07/05/17 Furosemide* (Furosemide*) 20 Mg Tablet, 20 MG PO DAILY, #60 TAB 07/05/17 Megestrol Acetate* (Megestrol Acetate*) 400 Mg/10 Ml Susp, 400 MG PO BID, ML 07/05/17 Gabapentin* (Gabapentin*) 300 Mg Capsule, 300 MG PO DAILY, #60 CAP 07/05/17 Tamsulosin Hcl* (Tamsulosin Hcl*) 0.4 Mg Cap.er.24h, 0.4 MG PO DAILY, CAP 07/05/17 Omeprazole* (Omeprazole*) 20 Mg Capsule.dr, 20 MG PO DAILY, #30 CAP 07/05/17 Trazodone Hcl* (Desyrel*) 50 Mg Tablet, 50 MG PO QHS, #30 TAB 07/05/17 Ferrous Sulfate* (Ferrous Sulfate*) 325 Mg Tabec, 325 MG PO DAILY, TAB 07/05/17 Atorvastatin* (Atorvastatin*) 40 Mg Tablet, 40 MG PO QHS, #30 TAB 07/05/17 Metformin* (Glucophage*) 500 Mg Tab, 500 MG PO BID, TAB 11/01/14 MARIE RIVAS MD Aug 02, 2017 15:12
== END 2017-08-02 17:00 | disposition home or self-care (01) ==
LOC: DCC 13:46
PROVIDERS: ATTEND Internal Medicine
DX: R60.0 Localized edema (principal); E11.9 Type 2 diabetes mellitus without complications; I10 Essential (primary) hypertension; E03.9 Hypothyroidism, unspecified; D64.9 Anemia, unspecified; E78.5 Hyperlipidemia, unspecified; C11.9 Malignant neoplasm of nasopharynx, unspecified

== ENCOUNTER 2017-12-30 22:30 | Inpatient (IN) | END 2018-01-03 16:37 | disposition hospice, home (50) | DRG 683 ==

== ENCOUNTER 2018-01-06 15:00 | Outpatient (CLI) | END 2018-01-06 15:51 | disposition home or self-care (01) ==